=== PATIENT | female | born 1995 | race Caucasian/White ===

== ENCOUNTER 2021-10-13 12:51 | Emergency (ER) | payer OTHER ==
[~2021-10-13] VITALS: Ht 167.6 cm; Wt 68.0 kg
[2021-10-13] MEDS ORDERED: KETOROLAC TROMETHAMINE 60 MG/2 ML VIAL IM ONE (14:30)
[2021-10-13] MEDS ORDERED: CYCLOBENZAPRINE HCL 10 MG TAB PO ONE (14:30)
[2021-10-13] MEDS ORDERED: IBUPROFEN600 MG PO (14:54)
[2021-10-13] MEDS ORDERED: METHOCARBAMOL750 MG PO (14:56)
[2021-10-13] MEDS ORDERED: ULTRAM 50MG50 MG PO (14:57)
== END 2021-10-13 15:16 | disposition home or self-care (01) ==
LOC: FSED 14:05
DX: S39.012A Strain of muscle, fascia and tendon of lower back, initial encounter (principal); M62.830 Muscle spasm of back; X50.1XXA Overexertion from prolonged static or awkward postures, initial encounter
CPT/HCPCS: 96372; 99282; J1885